=== PATIENT | female | born 1980 | race Caucasian/White ===

== ENCOUNTER → 2018-03-01 | Outpatient (CLI) | payer OTHER | LOC: FIMAGING 09:19 | PROVIDERS: ATTEND Obstetrics & Gynecology | DX: O09.521 Supervision of elderly multigravida, first trimester (principal); Z3A.12 12 weeks gestation of pregnancy ==

== ENCOUNTER → 2018-04-13 | Outpatient (CLI) | payer OTHER | LOC: FIMAGING 11:50 | PROVIDERS: ATTEND Obstetrics & Gynecology | DX: O09.522 Supervision of elderly multigravida, second trimester (principal); Z3A.19 19 weeks gestation of pregnancy ==

== ENCOUNTER → 2018-07-13 | Outpatient (CLI) | payer OTHER | LOC: FIMAGING 13:18 | PROVIDERS: ATTEND Obstetrics & Gynecology | DX: O09.523 Supervision of elderly multigravida, third trimester (principal); Z3A.32 32 weeks gestation of pregnancy ==

== ENCOUNTER → 2018-07-27 | Outpatient (CLI) | payer OTHER | LOC: FIMAGING 13:20 | PROVIDERS: ATTEND Obstetrics & Gynecology | DX: O09.523 Supervision of elderly multigravida, third trimester (principal); O36.5930 Maternal care for other known or suspected poor fetal growth, third trimester, not applicable or unspecified; Z3A.34 34 weeks gestation of pregnancy ==

== ENCOUNTER → 2018-08-12 | Outpatient (CLI) | payer OTHER | LOC: FIMAGING 09:08 | PROVIDERS: ATTEND Obstetrics & Gynecology | DX: O36.5930 Maternal care for other known or suspected poor fetal growth, third trimester, not applicable or unspecified (principal); Z3A.36 36 weeks gestation of pregnancy ==

== ENCOUNTER → 2018-12-28 | Outpatient (CLI) | payer OTHER | LOC: FIMAGING 11:14 | PROVIDERS: ATTEND Obstetrics & Gynecology | DX: Z39.2 Encounter for routine postpartum follow-up (principal); Z87.59 Personal history of other complications of pregnancy, childbirth and the puerperium ==